=== PATIENT | male | born 1940 | race Caucasian/White ===

== ENCOUNTER 2017-10-05 11:18 | Emergency (ER) | payer MEDICARE ==
[~2017-10-05 11:18] MED LIST: AEC81 PO; CHOL100044 PO; GLUC1TAB21 PO; LOSA100T2 PO; METR500T PO; MULT-1258 PO; OMEP20TA2 PO; [UNRECOGNIZED DRUG - CODE] PO
[2017-10-05] MEDS ORDERED: TETANUS/DIPHTHERIA TOXOID [ADULT] 0.5 ML VIAL IM ONE (11:30)
[2017-10-05] MEDS ORDERED: HYDROCODONE/ACETAMINOPHEN 5/325 MG TAB ONE (12:41)
== END 2017-10-05 12:49 | disposition home or self-care (01) ==
LOC: EDH 11:18
DX: S63.104A Unspecified dislocation of right thumb, initial encounter (principal); I10 Essential (primary) hypertension; Z88.1 Allergy status to other antibiotic agents; V18.4XXA Pedal cycle driver injured in noncollision transport accident in traffic accident, initial encounter; Y93.55 Activity, bike riding; Y92.488 Other paved roadways as the place of occurrence of the external cause; Y99.8 Other external cause status
CPT/HCPCS: 29125; 73130; 90471; 90714

== ENCOUNTER → 2018-08-20 | Outpatient (CLI) | payer OTHER ==
[~2018-08-20] MED LIST changes: -CHOL100044 PO; -GLUC1TAB21 PO; +METO-391 PO; -METR500T PO; +TAMS-1 PO; -[UNRECOGNIZED DRUG - CODE] PO
== END | disposition home or self-care (01) ==
LOC: OIH 13:40
PROVIDERS: ATTEND Internal Medicine Cardiovascular Disease
DX: Z13.6 Encounter for screening for cardiovascular disorders (principal)
CPT/HCPCS: 75571